=== PATIENT | male | born 1985 | race American Indian/Alaskan Native ===

== ENCOUNTER 2021-12-02 19:01 | Emergency (ER) | payer OTHER ==
[2021-12-02 19:41] VITALS: BP 133/87
[2021-12-03] MEDS ORDERED: HYDROcodone/ACETAMINOPHEN 5-325 MG TAB PO STA (01:42)
--- NOTE | 2021-12-03 02:13 | XRay Report ---
LEFT RIBS 3 VIEWS INDICATION: Left rib pain.. COMPARISON: None available. FINDINGS: RIBS: No acute, displaced fracture or other acute abnormality. CHEST: No acute findings. No pneumothorax. ADDITIONAL FINDINGS: No additional significant findings. IMPRESSION: 1. No acute abnormality. Signer Name: Rudi Smith MD Signed: 12/03/2021 2:08 AM Workstation Name: [id number]
--- NOTE | 2021-12-03 04:46 | Emergency Department Report ---
ED General Adult HPI - General Chief complaint: Upper Respiratory Infection Stated complaint: FLU SYMPTOMS Time Seen by Provider: 12/03/21 01:41 Source: patient Mode of arrival: Ambulatory Limitations: No Limitations - History of Present Illness Initial comments: 34-year-old male presents emerged department complaining of having flu symptoms which was followed by his maria d COVID him developing symptoms like that as well resulting in coughing congestion coryza fever sensation. I was having a coughing spell he felt a loud pop on his left side of the rib followed by significant pain which continued to aggravate him for the last 2 to 3 days he presents emergency department to have it evaluated. He is also makes mention redness to the on the left side with some itchiness and mucus buildup. No headache no nausea vomiting no fever, chills, sweats. He reports no presyncope. No tinnitus, no blurred vision no neck pain. No sore throat odynophagia or dysphagia. Severity scale (0 -10): 5 Improves with: none Worsens with: none Associated Symptoms: denies other symptoms. denies: diaphoresis Treatments Prior to Arrival: none - Related Data Previous Rx's Medication Instructions Recorded Last Taken Type Ketorolac [Toradol] 10 mg PO Q4HR PRN #20 tablet 12/03/21 Unknown Rx Olopatadine HCl [Pataday 0.2%] 1 drop OS QDAY #1 drops 12/03/21 Unknown Rx Tobramycin 0.3% [Tobrex] 1 drop OU Q8HR #1 bottle 12/03/21 Unknown Rx Allergies Allergy/AdvReac Type Severity Reaction Status Date / Time diary Allergy Diarrhea Uncoded 12/02/21 19:40 ED Review of Systems ROS: Stated complaint: FLU SYMPTOMS Other details as noted in HPI Comment: All other systems reviewed and negative ED Past Medical Hx - Past Medical History Previous Medical History?: No - Surgical History Past Surgical History?: No - Social History Smoking Status: Never Smoker Substance Use Type: None - Medications Home Medications: Home Medications Medication Instructions Recorded Confirmed Last Taken Type Ketorolac [Toradol] 10 mg PO Q4HR PRN #20 tablet 12/03/21 Unknown Rx Olopatadine HCl [Pataday 0.2%] 1 drop OS QDAY #1 drops 12/03/21 Unknown Rx Tobramycin 0.3% [Tobrex] 1 drop OU Q8HR #1 bottle 12/03/21 Unknown Rx ED Physical Exam - General Limitations: No Limitations General appearance: alert, in no apparent distress - Head Head exam: Present: atraumatic, normocephalic - Eye Eye exam: Present: normal appearance, conjunctival injection (Left eye is injected with mucus to the normal eyelid lacrimal apparatus is clear no evidence of any stye or chalazion present.). Absent: periorbital swelling, periorbital tenderness Pupils: Present: normal accommodation - ENT ENT exam: Present: mucous membranes moist - Neck Neck exam: Present: normal inspection - Respiratory Respiratory exam: Present: normal lung sounds bilaterally, chest wall tenderness (Tenderness to the left rib area in the intercostal space in the area of the cartilage. Lungs clear to auscultation). Absent: respiratory distress - Cardiovascular Cardiovascular Exam: Present: regular rate, normal rhythm. Absent: systolic murmur, diastolic murmur, rubs, gallop - GI/Abdominal GI/Abdominal exam: Present: soft, normal bowel sounds - Rectal Rectal exam: Present: deferred - Extremities Exam Extremities exam: Present: normal inspection - Back Exam Back exam: Present: normal inspection - Neurological Exam Neurological exam: Present: alert, oriented X3 - Psychiatric Psychiatric exam: Present: normal affect, normal mood - Skin Skin exam: Present: warm, dry, intact, normal color. Absent: rash ED Course Vital Signs 12/02/21 19:40 Temperature 98.5 F Pulse Rate 97 H Respiratory 18 Rate Blood Pressure 133/87 O2 Sat by Pulse 97 Oximetry ED Medical Decision Making - Radiology Data Radiology results: report reviewed [address] [address] XRay Report Signed Patient: BRISEYDA BILLINGSLEY MR #: [id number] : 1985 Acct:[id number] Age/Sex: 36 / M ADM Date: 12/02/21 Loc: ED Attending Dr: Ordering Physician: ZAIRA HO Date of Service: 12/03/21 Procedure(s): XR ribs UNI w PA chest 3+V LT Accession Number(s): [id number] cc: ZAIRA HO Fluoro Time In Minutes: LEFT RIBS 3 VIEWS INDICATION: Left rib pain.. COMPARISON: None available. FINDINGS: RIBS: No acute, displaced fracture or other acute abnormality. CHEST: No acute findings. No pneumothorax. ADDITIONAL FINDINGS: No additional significant findings. IMPRESSION: 1. No acute abnormality. Signer Name: Rudi Smith MD Signed: 12/03/2021 2:08 AM Workstation Name: [id number] Transcribed By: ANJELICA Dictated By: Rudi Smith MD Electronically Authenticated By: Rudi Smith MD Signed Date/Time: 12/03/21207 DD/ 7 TD/TT: Print Cancel - Medical Decision Making This patient presents with acute cough, most consistent with a viral. Differential diagnosis includes pneumonia, COVID-19, flu, hyperreactive airways,. Presentation not consistent with acute bacterial pneumonia, influenza, asthma, transient airway hyperresponsiveness. Presentation not consistent with chronic causes of cough (including GERD, asthma, postnasal discharge, medication side effect, CHF, lung cancer or mass). Plan: supportive care, reassess Critical care attestation.: If time is entered above; I have spent that time in minutes in the direct care of this critically ill patient, excluding procedure time. ED Disposition Clinical Impression: Costochondral joint sprain, Cough, Conjunctivitis Disposition: 01 HOME / SELF CARE / HOMELESS Is pt being admited?: No Does the pt Need Aspirin: No Condition: Stable Instructions: Cool Mist Vaporizer Prescriptions: Olopatadine HCl [Pataday 0.2%] 1 drop OS QDAY #1 drops Tobramycin 0.3% [Tobrex] 1 drop OU Q8HR #1 bottle Ketorolac [Toradol] 10 mg PO Q4HR PRN #20 tablet PRN Reason: Pain Referrals: PRIMARY CARE, [Primary Care Provider] - 3-5 Days [facility] [Provider Group] - 3-5 Days
== END 2021-12-03 04:59 | disposition home or self-care (01) ==
LOC: ED 19:01
DX: S23.41XA Sprain of ribs, initial encounter (principal); R05.9 Cough, unspecified; H10.9 Unspecified conjunctivitis; X58.XXXA Exposure to other specified factors, initial encounter; Y93.89 Activity, other specified; Y92.89 Other specified places as the place of occurrence of the external cause; Y99.8 Other external cause status
CPT/HCPCS: 99283